=== PATIENT | female | born 1980 | race Hispanic/Latino ===

== ENCOUNTER 2017-07-25 00:46 | Emergency (ER) | payer OTHER ==
[~2017-07-25 00:46] MED LIST: BACL10TA PO; METH4TAB3 PO
[2017-07-25] MEDS ORDERED: SODIUM CHLORIDE 0.9% 1000ML 1,000 ML IV ONE (01:32)
[2017-07-25] MEDS ORDERED: KETOROLAC TROMETHAMINE 15MG/ML ONE (01:33)
[2017-07-25 01:35] LABS: BASOPHILS % (AUTO) 0.9 % (0.0-5.0); EOSINOPHILS % (AUTO) 3.1 % (0.0-8.0); HEMATOCRIT 36.3 % (36-48); MEAN CORPUSCULAR HEMOGLOBIN 30.6 pg (27.0-33.0); MEAN CORPUSCULAR HGB CONC 34.2 g/dL (32.0-36.0); MEAN CORPUSCULAR VOLUME 89.7 fL (79-99); MONOCYTES % (AUTO) 9.6 % (3.0-13.0); NEUTROPHILS % (AUTO) 69.4 % (40.0-77.0); PLATELET COUNT (AUTO) 319 K/uL (130-400); RED BLOOD CELL COUNT(AUTO) 4.05 MIL/uL (4.00-5.50); RED CELL DISTRIBUTION WIDTH 13.5 % (11.0-15.5); WHITE BLOOD COUNT (AUTO) 9.5 K/uL (4.8-10.8)
[2017-07-25 01:37] LABS: APPEARANCE,URINE Cloudy (CLEAR); BILIRUBIN,URINE Negative (NEGATIVE); COLOR,URINE Yellow (YELLOW); GLUCOSE, URINE (UA) Negative (NEGATIVE); KETONES,URINE Negative (NEGATIVE); LEUKOCYTE ESTERASE ,URINE Large (NEGATIVE); NITRATE,URINE Negative (NEGATIVE); OCCULT BLOOD,URINE Moderate (NEGATIVE); PROTEIN,URINE POS 1+ (NEGATIVE)
[2017-07-25 01:41] LABS: AMORPHOUS SEDIMENT,UR Moderate /LPF (None Seen); BACTERIA,URINE Moderate /HPF (None Seen); MUCUS,URINE Moderate LPF (None Seen); SQUAMOUS EPITHELIAL CELL,UR Moderate /LPF (0-2)
[2017-07-25 01:42] LABS: HCG,QUAL RESULT NEGATIVE (NEGATIVE)
[2017-07-25 01:44] LABS: CREATININE 0.9 mg/dL (0.5-1.5); POTASSIUM 3.6 mmol/L (3.5-5.1)
[2017-07-25 01:48] LABS: ALBUMIN 3.6 g/dL (3.5-5.0); BILIRUBIN,TOTAL 0.3 mg/dL (0.2-1.0); TOTAL PROTEIN, SERUM 7.3 g/dL (6.0-8.3)
[2017-07-25] MEDS ORDERED: CEFTRIAXONE SODIUM 1 GM ONE (02:16)
== END 2017-07-25 02:55 | disposition home or self-care (01) ==
LOC: EDH 00:46
DX: N39.0 Urinary tract infection, site not specified (principal); Z98.890 Other specified postprocedural states; Z72.0 Tobacco use
CPT/HCPCS: 36415; 80053; 81001; 81025; 83690; 85025; 96361; 96374; 96375; 99284; A4218; J0696; J1885; J7030

== ENCOUNTER 2019-01-30 21:22 | Emergency (ER) | payer OTHER ==
[2019-01-30 22:27] LABS: BILIRUBIN,URINE Negative (NEGATIVE); COLOR,URINE Yellow (YELLOW); GLUCOSE, URINE (UA) Negative (NEGATIVE); KETONES,URINE Negative (NEGATIVE); LEUKOCYTE ESTERASE ,URINE Moderate (NEGATIVE); NITRATE,URINE Negative (NEGATIVE); OCCULT BLOOD,URINE Large (NEGATIVE); PH,URINE 6.5 (5.0-8.0); PROTEIN,URINE Negative (NEGATIVE)
[2019-01-30 22:30] LABS: APPEARANCE,URINE SLIGHTLY CLOUDY (CLEAR)
[2019-01-30 22:35] LABS: AMPHET/METH SCREEN,URINE NEGATIVE (NEGATIVE); BARBITURATE SCREEN, URINE NEGATIVE (NEGATIVE); BENZODIAZEPINES SCREEN,URINE NEGATIVE (NEGATIVE); CANNABINOID SCREEN,URINE NEGATIVE (NEGATIVE); COCAINE SCREEN,URINE NEGATIVE (NEGATIVE); OPIATE SCREEN,URINE NEGATIVE (NEGATIVE); PHENCYCLIDINE SCREEN,URINE NEGATIVE (NEGATIVE)
[2019-01-30 22:50] LABS: CREATININE 0.8 mg/dL (0.5-1.5); POTASSIUM 3.5 mmol/L (3.5-5.1)
[2019-01-30 22:52] LABS: BACTERIA,URINE Few /HPF (None Seen); SQUAMOUS EPITHELIAL CELL,UR Few /HPF (0-2)
[2019-01-30 22:55] LABS: ALBUMIN 3.8 g/dL (3.5-5.0); BILIRUBIN,TOTAL 0.2 mg/dL (0.2-1.0); TOTAL PROTEIN, SERUM 7.7 g/dL (6.0-8.3)
[2019-01-30 23:26] LABS: BASOPHILS % (AUTO) 0.6 % (0.0-5.0); EOSINOPHILS % (AUTO) 3.9 % (0.0-8.0); HEMATOCRIT 36.4 % (36-48); LYMPHOCYTES % (AUTO) 32.4 % (21.0-51.0); MEAN CORPUSCULAR HEMOGLOBIN 29.7 pg (27.0-33.0); MEAN CORPUSCULAR HGB CONC 33.3 g/dL (32.0-36.0); MEAN CORPUSCULAR VOLUME 89.3 fL (79-99); MONOCYTES % (AUTO) 9.5 % (3.0-13.0); NEUTROPHILS % (AUTO) 53.6 % (40.0-77.0); PLATELET COUNT (AUTO) 326 K/uL (130-400); RED BLOOD CELL COUNT(AUTO) 4.08 MIL/uL (4.00-5.50); WHITE BLOOD COUNT (AUTO) 6.8 K/uL (4.8-10.8)
[2019-01-31] MEDS ORDERED: KETOROLAC TROMETHAMINE 30MG/ML ONE (00:41)
[2019-01-31] MEDS ORDERED: ASPIRIN 325 MG TABLET ONE (01:19)
[2019-01-31] MEDS ORDERED: SULFAMETHOX-TMP DS 800/160 TAB ONE (01:35)
[2019-01-31] MEDS ORDERED: IOHEXOL 350 MG/ML 100ML INFUS..BTL IV ONE (01:52)
[2019-01-31] MEDS ORDERED: GADODIAMIDE 10 MMOL/20 ML VIAL IV ONE (08:54)
[2019-01-31] MEDS ORDERED: PROCHLORPERAZINE EDISYLATE 10 MG/2 ML VIAL ONE (10:13)
== END 2019-01-31 11:57 | disposition home or self-care (01) ==
LOC: EDH 21:22
DX: G62.9 Polyneuropathy, unspecified (principal); R51 Headache; Z88.1 Allergy status to other antibiotic agents; Z72.0 Tobacco use; Z98.890 Other specified postprocedural states
CPT/HCPCS: 36415; 70450; 70496; 70498; 70553; 80053; 80305; 81001; 84484; 85025; 85378; 93005; 96374; 96375; 99285; A9579; J0780; J1885; Q9967

== ENCOUNTER 2020-08-23 07:33 | Inpatient (IN) | payer BC, OTHER ==
[~2020-08-23] VITALS: Ht 162.6 cm; Wt 106.1 kg
[2020-08-23] MEDS ORDERED: MORPHINE 4 MG SYG ONE ×2 (07:54→10:13)
[2020-08-23] MEDS ORDERED: ONDANSETRON 4MG INJ ONE ×2 (07:54→12:17)
[2020-08-23] MEDS ORDERED: KETOROLAC 30MG VIAL (30MG/ML) ONE (07:54)
[2020-08-23 07:58] LABS: BASOPHILS % (AUTO) 1.1 % (0.0-5.0); HEMATOCRIT 38.6 % (36-48); MEAN CORPUSCULAR HEMOGLOBIN 27.5 pg (27.0-33.0); MEAN CORPUSCULAR HGB CONC 32.6 g/dL (32.0-36.0); MEAN CORPUSCULAR VOLUME 84.1 fL (79-99); NEUTROPHILS % (AUTO) 51.3 % (40.0-77.0); PLATELET COUNT (AUTO) 390 K/uL (130-400); RED BLOOD CELL COUNT(AUTO) 4.59 MIL/uL (4.00-5.50); RED CELL DISTRIBUTION WIDTH 13.7 % (11.0-15.5); WHITE BLOOD COUNT (AUTO) 6.2 K/uL (4.8-10.8)
[2020-08-23] MEDS ORDERED: 0.9%NACL 1000ML 1,000 ML IV ONE ×2 (08:06→13:53)
[2020-08-23 08:18] LABS: ALBUMIN 4.1 g/dL (3.5-5.0); BILIRUBIN,TOTAL 0.3 mg/dL (0.2-1.0); CREATININE 0.9 mg/dL (0.5-1.5); TOTAL PROTEIN, SERUM 8.2 g/dL (6.0-8.3)
[2020-08-23] MEDS ORDERED: HYDROCODONE/ACETAMINOPHEN 5/325 MG TAB ONE (09:25)
[2020-08-23 09:26] LABS: APPEARANCE,URINE Turbid (CLEAR); BILIRUBIN,URINE Small (NEGATIVE); COLOR,URINE Dark Yellow (YELLOW); GLUCOSE, URINE (UA) Negative (NEGATIVE); KETONES,URINE 15 mg/dL (NEGATIVE); LEUKOCYTE ESTERASE ,URINE Small (NEGATIVE); NITRATE,URINE Negative (NEGATIVE); OCCULT BLOOD,URINE Large (NEGATIVE); PH,URINE 6.5 (5.0-8.0); PROTEIN,URINE POS 2+ mg/dL (NEGATIVE)
[2020-08-23 09:42] LABS: BACTERIA,URINE Moderate /HPF (None Seen); RBC,URINE 51-100 /HPF (0-1)
[2020-08-23 09:43] LABS: SQUAMOUS EPITHELIAL CELL,UR Few /HPF (0-2)
[2020-08-23] MEDS ORDERED: LEVOFLOXACIN 500 MG/D5W 100 ML 100 ML ONE (10:12)
[2020-08-23] MEDS ORDERED: PROMETHAZINE HCL 25 MG/ML 1ML AMPULE IM PRN ×2 (13:15)
[2020-08-23] MEDS ORDERED: ACETAMINOPHEN 325 MG TAB PO PRN ×2 (13:15)
[2020-08-23] MEDS: 0.9%NACL 1000ML 1,000 ML IV SCH ×2 (13:15→20:22)
[2020-08-23] MEDS ORDERED: LEVOFLOXACIN 500 MG/D5W 100 ML 100 ML IV SCH (14:45)
[2020-08-23 15:22] VITALS: BP 118/70
[2020-08-23] MEDS: TAMSULOSIN HCL 0.4 MG CAP.ER.24H PO SCH (17:45)
[2020-08-23 19:38] VITALS: BP 124/65
[2020-08-23] MEDS: FAMOTIDINE 20MG VIAL IV SCH (20:28)
[2020-08-23] MEDS: MORPHINE 2 MG SYG IV PRN (20:30)
[2020-08-23] MEDS: ONDANSETRON 4MG INJ IV PRN (20:30)
[2020-08-24] VITALS (7 sets, daily range): BP systolic 104–135; BP diastolic 55–80
[2020-08-24] MEDS: 0.9%NACL 1000ML 1,000 ML IV SCH ×4 (03:02→23:00)
[2020-08-24] MEDS: MORPHINE 2 MG SYG IV PRN (05:33)
[2020-08-24] MEDS ORDERED: HYDROMORPHONE 0.5 MG SYG (0.5MG/0.5ML) ONE (05:49)
[2020-08-24] MEDS ORDERED: HYDROMORPHONE 1 MG INJ IVP PRN (06:00)
[2020-08-24 06:06] LABS: BASOPHILS % (AUTO) 0.8 % (0.0-5.0); EOSINOPHILS % (AUTO) 2.7 % (0.0-8.0); HEMATOCRIT 34.4 % (36-48); LYMPHOCYTES % (AUTO) 33.9 % (21.0-51.0); MEAN CORPUSCULAR HEMOGLOBIN 27.8 pg (27.0-33.0); MEAN CORPUSCULAR HGB CONC 32.3 g/dL (32.0-36.0); MEAN CORPUSCULAR VOLUME 86.2 fL (79-99); MONOCYTES % (AUTO) 8.5 % (3.0-13.0); NEUTROPHILS % (AUTO) 53.7 % (40.0-77.0); PLATELET COUNT (AUTO) 359 K/uL (130-400); RED BLOOD CELL COUNT(AUTO) 3.99 MIL/uL (4.00-5.50); RED CELL DISTRIBUTION WIDTH 14.2 % (11.0-15.5); WHITE BLOOD COUNT (AUTO) 7.3 K/uL (4.8-10.8)
[2020-08-24] MEDS: ONDANSETRON 4MG INJ IV PRN (06:12)
[2020-08-24 06:58] LABS: ALBUMIN 3.3 g/dL (3.5-5.0); BILIRUBIN,TOTAL 0.3 mg/dL (0.2-1.0); CREATININE 0.9 mg/dL (0.5-1.5); POTASSIUM 3.8 mmol/L (3.5-5.1)
[2020-08-24] MEDS: LOSARTAN 50 MG TABLET PO SCH (08:45)
[2020-08-24] MEDS: LEVOFLOXACIN 500 MG/D5W 100 ML 100 ML IV SCH (08:45)
[2020-08-24] MEDS: FAMOTIDINE 20MG VIAL IV SCH ×2 (08:45→20:37)
[2020-08-24] MEDS: TAMSULOSIN HCL 0.4 MG CAP.ER.24H PO SCH (08:45)
[2020-08-24] MEDS ORDERED: KETOROLAC 30MG VIAL (30MG/ML) IV PRN ×2 (09:00→15:00)
[2020-08-25 04:45] VITALS: BP 143/83
[2020-08-25] MEDS: 0.9%NACL 1000ML 1,000 ML IV SCH (05:26)
[2020-08-25 05:52] LABS: BASOPHILS % (AUTO) 0.8 % (0.0-5.0); EOSINOPHILS % (AUTO) 5.3 % (0.0-8.0); HEMATOCRIT 31.5 % (36-48); LYMPHOCYTES % (AUTO) 32.3 % (21.0-51.0); MEAN CORPUSCULAR HEMOGLOBIN 27.8 pg (27.0-33.0); MEAN CORPUSCULAR HGB CONC 32.1 g/dL (32.0-36.0); MEAN CORPUSCULAR VOLUME 86.8 fL (79-99); MONOCYTES % (AUTO) 8.9 % (3.0-13.0); NEUTROPHILS % (AUTO) 52.3 % (40.0-77.0); PLATELET COUNT (AUTO) 295 K/uL (130-400); RED BLOOD CELL COUNT(AUTO) 3.63 MIL/uL (4.00-5.50); RED CELL DISTRIBUTION WIDTH 14.2 % (11.0-15.5); WHITE BLOOD COUNT (AUTO) 5.3 K/uL (4.8-10.8)
[2020-08-25 06:02] LABS: CREATININE 0.7 mg/dL (0.5-1.5); POTASSIUM 3.4 mmol/L (3.5-5.1)
[2020-08-25 07:00] VITALS: BP 124/63
[2020-08-25] MEDS: FAMOTIDINE 20MG VIAL IV SCH (08:14)
[2020-08-25] MEDS: LEVOFLOXACIN 500 MG/D5W 100 ML 100 ML IV SCH (08:14)
[2020-08-25] MEDS: LOSARTAN 50 MG TABLET PO SCH (09:48)
[2020-08-25] MEDS: TAMSULOSIN HCL 0.4 MG CAP.ER.24H PO SCH (09:48)
[2020-08-25 11:30] VITALS: BP 118/62
[2020-08-25] MEDS ORDERED: LEVO500T90 PO (11:35)
[2020-08-25] MEDS ORDERED: TRAM50TA4 PO (11:35)
[2020-08-25 16:00] VITALS: BP 125/69
== END 2020-08-25 16:30 | disposition home or self-care (01) | DRG 690 ==
LOC: EDH 07:33 → EDHIP 13:09 → 3BH 15:21
PROVIDERS: ADMIT Family Medicine; ATTEND Family Medicine
DX: N13.6 Pyonephrosis (principal); N17.9 Acute kidney failure, unspecified; K21.9 Gastro-esophageal reflux disease without esophagitis; F17.200 Nicotine dependence, unspecified, uncomplicated; I10 Essential (primary) hypertension; E86.1 Hypovolemia; N30.91 Cystitis, unspecified with hematuria; K57.90 Diverticulosis of intestine, part unspecified, without perforation or abscess without bleeding; Z87.442 Personal history of urinary calculi; Z82.5 Family history of asthma and other chronic lower respiratory diseases; Z82.49 Family history of ischemic heart disease and other diseases of the circulatory system
CPT/HCPCS: 36415; 74176; 80048; 80053; 81001; 81025; 83605; 84145; 85025; 87088; G0378; J1170; J1885; J1956; J2270; J2405; J2550; J3490; J7030

== ENCOUNTER 2022-12-24 10:44 | Emergency (ER) | payer BC ==
[~2022-12-24] VITALS: Ht 165.1 cm; Wt 97.1 kg
[~2022-12-24 10:44] MED LIST changes: -BACL10TA PO; +LEVO-70 PO; -METH4TAB3 PO; +TRAM50TA4 PO
[2022-12-24] MEDS ORDERED: 0.9%NACL 1000ML 1,000 ML IV ONE (11:30)
[2022-12-24 12:21] LABS: BASOPHILS % (AUTO) 1.5 % (0.0-5.0); EOSINOPHILS % (AUTO) 3.8 % (0.0-8.0); HEMATOCRIT 30.4 % (36-48); LYMPHOCYTES % (AUTO) 32.2 % (21.0-51.0); MEAN CORPUSCULAR HEMOGLOBIN 18.8 pg (27.0-33.0); MEAN CORPUSCULAR HGB CONC 28.6 g/dL (32.0-36.0); MEAN CORPUSCULAR VOLUME 65.5 fL (79-99); NEUTROPHILS % (AUTO) 51.8 % (40.0-77.0); PLATELET COUNT (AUTO) 543 K/uL (130-400); RED BLOOD CELL COUNT(AUTO) 4.64 MIL/uL (4.00-5.50); RED CELL DISTRIBUTION WIDTH 19.7 % (11.0-15.5); WHITE BLOOD COUNT (AUTO) 5.5 K/uL (4.8-10.8)
[2022-12-24 12:34] LABS: ALBUMIN 3.6 g/dL (3.5-5.0); CREATININE 0.7 mg/dL (0.5-1.5); POTASSIUM 3.9 mmol/L (3.5-5.1); TOTAL PROTEIN, SERUM 7.6 g/dL (6.0-8.3)
[2022-12-24 13:25] LABS: APPEARANCE,URINE CLEAR (CLEAR); BILIRUBIN,URINE NEGATIVE (NEGATIVE); COLOR,URINE COLORLESS (YELLOW); GLUCOSE, URINE (UA) NEGATIVE (NEGATIVE); KETONES,URINE NEGATIVE (NEGATIVE); LEUKOCYTE ESTERASE ,URINE NEGATIVE Leu/uL (NEGATIVE); NITRATE,URINE NEGATIVE (NEGATIVE); OCCULT BLOOD,URINE NEGATIVE (NEGATIVE); PH,URINE 6.5 (5.0-8.0); PROTEIN,URINE NEGATIVE (NEGATIVE); UROBILINOGEN,URINE 0.2 mg/dL (0.2-1.0)
[2022-12-24 15:09] VITALS: BP 131/80
[2022-12-24] MEDS ORDERED: IOHEXOL 350 MG/ML 100ML INFUS..BTL IV ONE (16:04)
[2022-12-24] MEDS ORDERED: POLY119P2 PO (17:02)
== END 2022-12-24 17:15 | disposition home or self-care (01) ==
LOC: EDH 10:44
DX: K59.00 Constipation, unspecified (principal); D64.9 Anemia, unspecified; F17.200 Nicotine dependence, unspecified, uncomplicated; Z88.1 Allergy status to other antibiotic agents
CPT/HCPCS: 99284; 74177; 96360; 84484; 80053; 83690; 85025; 81003; 36415; J7030; Q9967

== ENCOUNTER 2023-07-06 04:30 | Emergency (ER) | payer BC ==
[~2023-07-06] VITALS: Ht 162.6 cm; Wt 100.7 kg
[~2023-07-06 04:30] MED LIST changes: +POLY119P2 PO
[2023-07-06] MEDS ORDERED: MECLIZINE HCL 25 MG TABLET PO ONE (05:30)
[2023-07-06] MEDS ORDERED: 0.9%NACL 1000ML 1,000 ML IV ONE ×2 (05:30→08:00)
[2023-07-06] MEDS ORDERED: ONDANSETRON 4MG INJ IVP ONE ×2 (05:30)
[2023-07-06 05:33] LABS: APPEARANCE,URINE CLEAR (CLEAR); BILIRUBIN,URINE NEGATIVE (NEGATIVE); COLOR,URINE YELLOW (YELLOW); GLUCOSE, URINE (UA) NEGATIVE (NEGATIVE); KETONES,URINE NEGATIVE (NEGATIVE); LEUKOCYTE ESTERASE ,URINE SMALL Leu/uL (NEGATIVE); NITRATE,URINE NEGATIVE (NEGATIVE); OCCULT BLOOD,URINE NEGATIVE (NEGATIVE); PH,URINE 8.5 (5.0-8.0); PROTEIN,URINE NEGATIVE (NEGATIVE); UROBILINOGEN,URINE 0.2 mg/dL (0.2-1.0)
[2023-07-06 05:35] LABS: ADD UA MICROSCOPIC YES
[2023-07-06 05:36] LABS: BACTERIA,URINE MOD /HPF (None Seen); MUCUS,URINE RARE LPF (None Seen); SQUAMOUS EPITHELIAL CELL,UR MANY /HPF (0-2)
[2023-07-06 05:59] LABS: BASOPHILS # (AUTO) 0.04 K/uL (0.00-0.20); BASOPHILS % (AUTO) 0.4 % (0.0-5.0); EOSINOPHILS # (AUTO) 0.12 K/uL (0.00-0.70); EOSINOPHILS % (AUTO) 1.1 % (0.0-8.0); HEMATOCRIT 35.1 % (36-48); IMMATURE GRANULOCYTE ABSOLUTE 0.06 K/uL (0-1); LYMPHOCYTES # (AUTO) 0.5 K/uL (1.0-4.8); LYMPHOCYTES % (AUTO) 4.3 % (21.0-51.0); MEAN CORPUSCULAR HEMOGLOBIN 22.1 pg (27.0-33.0); MEAN CORPUSCULAR HGB CONC 31.1 g/dL (32.0-36.0); MEAN CORPUSCULAR VOLUME 71.2 fL (79-99); MONOCYTES # (AUTO) 0.5 K/uL (0.1-1.0); MONOCYTES % (AUTO) 4.2 % (3.0-13.0); NEUTROPHILS # (AUTO) 9.5 K/uL (1.8-7.7); NEUTROPHILS % (AUTO) 89.4 % (40.0-77.0); PLATELET COUNT (AUTO) 421 K/uL (130-400); RED BLOOD CELL COUNT(AUTO) 4.93 MIL/uL (4.00-5.50); RED CELL DISTRIBUTION WIDTH 20.2 % (11.0-15.5); WHITE BLOOD COUNT (AUTO) 10.7 K/uL (4.8-10.8)
[2023-07-06 06:05] LABS: ALBUMIN 3.6 g/dL (3.5-5.0); BILIRUBIN,TOTAL 0.6 mg/dL (0.2-1.0); CREATININE 0.8 mg/dL (0.5-1.5); POTASSIUM 4.7 mmol/L (3.5-5.1)
[2023-07-06 06:43] LABS: WBC MORPHOLOGY CONSISTENT W/DIFF
[2023-07-06] MEDS ORDERED: MECL50TA4 PO (07:08)
[2023-07-06] MEDS ORDERED: ONDA4TAB10 PO (07:09)
[2023-07-06] MEDS ORDERED: METOCLOPRAMIDE 10 MG/2 ML VIAL IVP ONE (08:00)
[2023-07-06 09:48] VITALS: BP 134/79; PULSE 101; RESP 20; O2SAT 99
== END 2023-07-06 09:50 | disposition home or self-care (01) ==
LOC: EDH 04:30
DX: H81.10 Benign paroxysmal vertigo, unspecified ear (principal); F17.200 Nicotine dependence, unspecified, uncomplicated; Z88.1 Allergy status to other antibiotic agents
CPT/HCPCS: 99284; 96374; 70450; 71045; 96361; 96375; 82150; 84484; 80053; 84703; 83690; 85025; 87088; 81001; 36415; 93005; J7030; J2405; J2765